=== PATIENT | male | born 1945 | race Two or more races ===

== ENCOUNTER 2019-09-04 16:12 | Inpatient (IN) | payer MEDICARE ==
[~2019-09-04] VITALS: Ht 170.2 cm; Wt 59.0 kg
--- NOTE | 2019-09-04 16:12 | NUR ---
To ER bed 3, COVID isolation observed for continuous coughing from [facility] [place], lethargic, minimally verbal, does not follow command, upper body clothes are dirty with urine-soaked pants. Comfort and safety measures maintained.
[2019-09-04] MEDS ORDERED: CEFTRIAXONE 1 G in IV DEXTROSE 5% 50 ML IV ONE (16:30)
[2019-09-04] MEDS ORDERED: AZITHROMYCIN IV 500 MG in IV DEXTROSE 5% 250 ML IV ONE (16:30)
[2019-09-04] MEDS ORDERED: AZITHROMYCIN 500MG/ D5W 250ML IVPB **ER PYXIS ONLY IV ONE (16:53)
[2019-09-04] MEDS ORDERED: CEFTRIAXONE /D5W 50ML IVPB **ER PYXIS IV ONE (16:53)
[2019-09-04] MEDS ORDERED: IV NORMAL SALINE 1000 ML BAG IV ONE (17:00)
[2019-09-04 17:31] LABS: ABG BASE EXCESS -0.4 mmol/L; ABG HCO3 21.7 mmol/L; ABG PCO2 29.2 mmHg (35.0-45.0); ABG PH 7.489 (7.350-7.450); ABG PO2 62.2 mmHg (75.0-100.0); ABG SITE RIGHT RADIAL; ABG TOTAL HEMOGLOBIN 14.9 G/dL (13.5-18.0); MetHb 0.2 % (0.0-1.5); O2Hb 92.4 % (94.0-97.0); VENT MODE non rebreather
[2019-09-04 17:38] LABS: BASOPHILS % (AUTO) 0.1 % (0.0-2.0); HEMOGLOBIN 14.7 g/dL (12.5-16.3); LYMPHOCYTES # (AUTO) 0.5 K/uL (20.0-40.0); LYMPHOCYTES % (AUTO) 4.4 % (20.5-51.5); MEAN CORPUSCULAR HEMOGLOBIN 31.1 uug (23.8-33.4); MEAN CORPUSCULAR HGB CONC 33 g/dL (32.5-36.3); MEAN CORPUSCULAR VOLUME 93.1 fL (73.0-96.2); MONOCYTES # (AUTO) 0.4 K/uL (2.0-10.0); NEUTROPHILS # (AUTO) 10.8 K/uL (1.8-8.9); NEUTROPHILS % (AUTO) 92.5 % (38.5-71.5); PLATELET COUNT (AUTO) 134 K/uL (152-348); RED BLOOD CELL COUNT(AUTO) 4.73 MIL/uL (4.06-5.63); WHITE BLOOD COUNT (AUTO) 11.6 K/uL (3.6-10.2)
[2019-09-04] MEDS ORDERED: ACET-73 PO (17:39)
[2019-09-04] MEDS ORDERED: ASPI-605 PO (17:39)
[2019-09-04 17:50] LABS: CARBON DIOXIDE 26 mmol/L (21-32); CHLORIDE 110 mmol/L (98-107); CREATININE 1.9 mg/dL (0.6-1.3); GLUCOSE 129 mg/dL (74-106); POTASSIUM 4.6 mmol/L (3.5-5.1); UREA NITROGEN, BLOOD 48 mg/dL (7-18)
[2019-09-04 18:02] LABS: ALANINE AMINOTRANSFERASE 15 U/L (16-63); ALKALINE PHOSPHATASE 64 U/L (50-136); ASPARTATE AMINOTRANSFERASE 36 U/L (15-37); TOTAL PROTEIN, SERUM 6.6 g/dL (6.4-8.2)
[2019-09-04 18:25] LABS: BAND % (MANUAL) 52 % (0-10); LYMPHOCYTES % (MANUAL) 6 % (20-40); METAMYELOCYTES % 1 % (0-1); MONOCYTES % (MANUAL) 4 % (2-10); NEUTROPHILS % (MANUAL) 37 % (42-75)
[2019-09-04] MEDS ORDERED: VANCOMYCIN IV 1,000 MG in IV DEXTROSE 5% 250 ML IV ONE (18:30)
[2019-09-04 18:49] LABS: *BILIRUBIN,URIN 2+ (NEGATIVE); *CLARITY,URINE CLOUDY (CLEAR); *COLOR,URINE AMBER (YELLOW); *KETONES,URINE NEGATIVE (NEGATIVE); LEUKOCYTE ESTERASE ,URINE NEGATIVE (NEGATIVE); NITRITE, URINE NEGATIVE (NEGATIVE); UGLUCOSE NEGATIVE (NEGATIVE)
[2019-09-04 18:52] LABS: *BLOOD, URINE TRACE (NEGATIVE)
[2019-09-04 18:54] LABS: COARSE GRANULAR CASTS,URINE 0-3 /LPF; MUCUS,URINE MODERATE /LPF (0-FEW); SQUAMOUS EPITHELIAL CELL,UR FEW /HPF (NONE SEEN); URINE AMORPHOUS URATE MANY /HPF; WBC,URINE 0-3 /HPF (0-3)
--- NOTE | 2019-09-04 19:05 | NUR ---
PATIENT OUT OF UNIT FOR CT SCAN.
--- NOTE | 2019-09-04 19:26 | NUR ---
PATIENT BACK FROM CT SCAN WITH NO DISTRESS NOTED.
[2019-09-04] MEDS ORDERED: VANCOMYCIN IV 200 ML ONE (19:36)
[2019-09-04] MEDS ORDERED: ENOXAPARIN SODIUM 60 MG/0.6 ML DISP.SYRIN SQ ONE ×2 (19:45→19:48)
[2019-09-04] MEDS ORDERED: Z GUARD REMEDY PASTE 57 GM TUBE TOP PRN (20:30)
[2019-09-04] MEDS ORDERED: HYDROCODONE/APAP 5-325MG TABLET PO PRN (20:30)
[2019-09-04] MEDS ORDERED: ONDANSETRON 4 MG/2 ML VIAL IV PRN (20:30)
[2019-09-04] MEDS ORDERED: ACETAMINOPHEN 325 MG TABLET PO PRN (20:30)
[2019-09-04 20:59] LABS: CREATINE KINASE, TOTAL 276 U/L (39-308); LACTATE DEHYDROGENASE 413 U/L (85-227)
[2019-09-04] MEDS ORDERED: HEPARIN SODIUM,PORCINE 5,000 UNITS/ML VIAL SQ SCH (21:00)
--- NOTE | 2019-09-04 21:18 | NUR ---
Transfered to 2nd floor ccu .
[2019-09-04 21:30] VITALS: BP 143/63
--- NOTE | 2019-09-04 21:30 | NUR ---
received from er , awake , unable to follow command , on 100% non rebreather , gannon intact , iv left and right hand 20 ga intact , no pressure sore just redness on the buttocks , temp 99.3 , rectally
[2019-09-04] MEDS ORDERED: ACETAMINOPHEN 650 MG SUPP.RECT RC PRN (22:00)
[2019-09-04] MEDS ORDERED: PIPERACILLIN/TAZOBACTAM/D5W 100 ML IV ONE (22:54)
[2019-09-04 23:00] VITALS: BP 140/62
[2019-09-04] MEDS: PIPERACILLIN SODIUM/TAZOBACTAM 3.375 G in IV DEXTROSE 5% 50 ML IV SCH (23:45)
[2019-09-05] VITALS (22 sets, daily range): BP systolic 95–143; BP diastolic 53–109
[2019-09-05 04:51] LABS: BASOPHILS % (AUTO) 0.1 % (0.0-2.0); HEMATOCRIT 43.1 % (36.7-47.1); HEMOGLOBIN 14.7 g/dL (12.5-16.3); LYMPHOCYTES # (AUTO) 0.4 K/uL (20.0-40.0); LYMPHOCYTES % (AUTO) 4.8 % (20.5-51.5); MEAN CORPUSCULAR HEMOGLOBIN 31.6 uug (23.8-33.4); MEAN CORPUSCULAR HGB CONC 34 g/dL (32.5-36.3); MEAN CORPUSCULAR VOLUME 92.3 fL (73.0-96.2); MONOCYTES # (AUTO) 0.1 K/uL (2.0-10.0); MONOCYTES % (AUTO) 1.7 % (0.0-11.0); NEUTROPHILS # (AUTO) 7.4 K/uL (1.8-8.9); NEUTROPHILS % (AUTO) 93.4 % (38.5-71.5); PLATELET COUNT (AUTO) 141 K/uL (152-348); RED BLOOD CELL COUNT(AUTO) 4.67 MIL/uL (4.06-5.63); WHITE BLOOD COUNT (AUTO) 7.9 K/uL (3.6-10.2)
[2019-09-05 05:01] LABS: ALANINE AMINOTRANSFERASE 16 U/L (16-63); ALKALINE PHOSPHATASE 58 U/L (50-136); ASPARTATE AMINOTRANSFERASE 32 U/L (15-37); BILIRUBIN,TOTAL 1.9 mg/dL (0.2-1.0); CARBON DIOXIDE 28 mmol/L (21-32); CHLORIDE 110 mmol/L (98-107); CHOLESTEROL 88 mg/dL (<200); CREATININE 1.6 mg/dL (0.6-1.3); GLUCOSE 132 mg/dL (74-106); HDL CHOLESTEROL 31 mg/dL (40-60); PHOSPHOROUS 2.5 mg/dL (2.5-4.9); POTASSIUM 4.4 mmol/L (3.5-5.1); TOTAL PROTEIN, SERUM 6.3 g/dL (6.4-8.2); TRIGLYCERIDES 58 MG/DL (30-150); UREA NITROGEN, BLOOD 45 mg/dL (7-18)
[2019-09-05] MEDS: PIPERACILLIN SODIUM/TAZOBACTAM 3.375 G in IV DEXTROSE 5% 50 ML IV SCH ×3 (05:01→21:21)
[2019-09-05 05:08] LABS: THYROID STIMULATING HORMONE 0.219 mIU/mL (0.358-3.740)
[2019-09-05] MEDS: ASPIRIN EC 81 MG TABLET.DR PO SCH (08:18)
--- NOTE | 2019-09-05 09:44 | NUR ---
BOILER SETTER Yadiel here to see pt. Full report given. No new orders received. Pt to remain in ICU for another day for observation.
--- NOTE | 2019-09-05 10:18 | NUR ---
PHARMACY CLINICAL NOTE (VANCOMYCIN DOSING) S: 73 YO male; with DX of Severe sepsis secondary to pneumonia, POA; initial lactic acid 4.9 Rule out COVID19 viral infection, ordered Vancomycin and Zosyn O: BUN/SCR (09/04/19)48/1.9; (09/05/19)45/1.6; WBC (09/04/19)11.6 (09/05/19) 7.9, TEMP 100.3, DOSING WT 130 LBS A/P:PT received one dose of Vancomycin 1000 mg @ 19:50 in ER (09/03); Will continue with vancomycin 1000 mg q28h. Second dose will be given tonight @ 0000.estimated peak 40 and trough 17. plan to order trough prior to 4th dose . Will continue to monitor renal fxn and levels and adjust the dose as it becomes necessary
[2019-09-05] MEDS: HEPARIN SODIUM,PORCINE 5,000 UNITS/ML VIAL SQ SCH ×2 (10:29→21:09)
--- NOTE | 2019-09-05 12:05 | NUR ---
Spoke with Brannon Gamez on the telephone. Full report given. New orders received.
--- NOTE | 2019-09-05 12:06 | NUR ---
Dr. Gamboa here to see pt. Full report given. No new orders received.
--- NOTE | 2019-09-05 18:00 | NUR ---
Telephone call made to Dr. Cordoba for IVF orders. Awaiting return call.
--- NOTE | 2019-09-05 19:15 | NUR ---
received patient awake , unable to follow command , portillo lefta dn right hand intact , gannon draining with tea colored urine , on 100 % nrb , no distress , fluids offered and refused
--- NOTE | 2019-09-05 20:57 | NUR ---
vitals signs being monitored and there's a stand by sophia rajan for sbp < 90 Addendum: 09/05/19 at 2056 by LEANDRA SAENZ RN Amended: Links added.
--- NOTE | 2019-09-05 20:59 | NUR ---
vitals signs being monitored and there's a stand by sophia rajan for sbp < 90 Addendum: 09/05/19 at 2058 by LEANDRA SAENZ RN Amended: Links added.
--- NOTE | 2019-09-05 21:00 | NUR ---
dr oneal, custodial manager was called and waiting for call back about patient's poor intake and possible need for iv fluids
--- NOTE | 2019-09-05 21:01 | NUR ---
lab levels being monitored and on antibiotics Addendum: 09/05/19 at 2101 by LEANDRA SAENZ RN Amended: Links added.
--- NOTE | 2019-09-05 22:00 | NUR ---
fluids and snacks gello and apple sauce offered and refused
[2019-09-06] VITALS (24 sets, daily range): BP systolic 94–155; BP diastolic 59–88
[2019-09-06] MEDS: VANCOMYCIN IV 1,000 MG in IV DEXTROSE 5% 250 ML IV SCH (00:09)
[2019-09-06] MEDS: MORPHINE SULFATE 2 MG/1 ML DISP.SYRIN IV PRN ×2 (00:13→17:15)
--- NOTE | 2019-09-06 03:00 | NUR ---
sleeping comfortably , arousable on 100 % non rebreather , no distress
[2019-09-06 05:28] LABS: BASOPHILS % (AUTO) 0.1 % (0.0-2.0); HEMATOCRIT 42.4 % (36.7-47.1); HEMOGLOBIN 14.5 g/dL (12.5-16.3); LYMPHOCYTES # (AUTO) 0.2 K/uL (20.0-40.0); LYMPHOCYTES % (AUTO) 2.8 % (20.5-51.5); MEAN CORPUSCULAR HEMOGLOBIN 31.5 uug (23.8-33.4); MEAN CORPUSCULAR HGB CONC 34 g/dL (32.5-36.3); MEAN CORPUSCULAR VOLUME 92.4 fL (73.0-96.2); MONOCYTES # (AUTO) 0.1 K/uL (2.0-10.0); MONOCYTES % (AUTO) 2.1 % (0.0-11.0); NEUTROPHILS # (AUTO) 6.2 K/uL (1.8-8.9); PLATELET COUNT (AUTO) 130 K/uL (152-348); RED BLOOD CELL COUNT(AUTO) 4.59 MIL/uL (4.06-5.63); WHITE BLOOD COUNT (AUTO) 6.5 K/uL (3.6-10.2)
[2019-09-06 05:34] LABS: CARBON DIOXIDE 31 mmol/L (21-32); CHLORIDE 111 mmol/L (98-107); CREATININE 1.5 mg/dL (0.6-1.3); GLUCOSE 130 mg/dL (74-106); POTASSIUM 3.5 mmol/L (3.5-5.1); UREA NITROGEN, BLOOD 45 mg/dL (7-18)
[2019-09-06] MEDS: PIPERACILLIN SODIUM/TAZOBACTAM 3.375 G in IV DEXTROSE 5% 50 ML IV SCH ×3 (05:44→22:37)
--- NOTE | 2019-09-06 06:00 | NUR ---
fluids and gello offered , refused to open mouth
--- NOTE | 2019-09-06 07:30 | NUR ---
RECIEVED PT LYING IN BED SO SOUND ASLEEP. BUT AROUSABLE TO NAME. NO APPARENT RESPIRATORY DISTRESS NOTED. HR - SINUS RHYTHM, WITH OCCASIONAL PAC. PT ON A 100% NRM. O2 SAT 99%. AFEBRILE.
--- NOTE | 2019-09-06 08:00 | NUR ---
IVF SITE IS INFILTRATED AND RESTARTED A NEW ONE IV G22..
--- NOTE | 2019-09-06 08:30 | NUR ---
PT HAD A 12 RUNS OF VTACH, VSS AND NO MAEVE[ARENT DISTRESS.
--- NOTE | 2019-09-06 08:52 | NUR ---
PHARMACY CLINICAL NOTE (VANCOMYCIN DOSING) S: 73 YO male; with DX of Severe sepsis secondary to pneumonia, r/o COVID O: BUN/SCR 45/1.5 ; WBC 6.5, TEMP 98.1 ht 170 cm wt 60 kg A/P: Will continue with vancomycin 1000 mg IVPB q28h. 3rd dose will be given tomorrow @ 0400. Plan to order trough prior to 4th dose . Will continue to monitor renal fxn and levels and adjust the dose as it becomes necessary. Will follow
[2019-09-06 08:56] LABS: ABG BASE EXCESS 3.3 mmol/L; ABG HCO3 26.6 mmol/L; ABG PH 7.486 (7.350-7.450); ABG PO2 325.9 mmHg (75.0-100.0); ABG SITE RIGHT RADIAL; MetHb 0.2 % (0.0-1.5); O2Hb 98.5 % (94.0-97.0)
--- NOTE | 2019-09-06 09:00 | NUR ---
RESTARTED A NEW IV G22 ON THE RFA, PREVIOUS IV SITE IS INFILTRATEDE AND REMOVED.
[2019-09-06] MEDS: ASPIRIN EC 81 MG TABLET.DR PO SCH (09:06)
[2019-09-06] MEDS: HEPARIN SODIUM,PORCINE 5,000 UNITS/ML VIAL SQ SCH ×2 (09:16→20:53)
--- NOTE | 2019-09-06 09:30 | NUR ---
NGT INSERTED ON THE RIGHT NOSTRIL FR#14 ORDERED AND PCXR ORDERED TO CHECK FOR PLACEMENT.
[2019-09-06] MEDS: IV NS 1000 ML 1,000 ML IV PRN (09:40)
--- NOTE | 2019-09-06 10:00 | NUR ---
SEEN AND EXAMINED BY DR MOROCHO WITH NEW ORDERS.
--- NOTE | 2019-09-06 11:50 | NUR ---
PT STARTED TO BE SO AGITATED, HR IS GOING SINUS TACHYCARDIA IN THE 120B/MIN, AND BREATHING FAST. ALBRETINA MEDICATION MORPHINE 1MG IN THE PYXIS TO MEDICATE HIM. BUT PT STARTED TO COME DOWN AND WENT BACK TO SLEEP. HR SLOWED DOWN. MORPHINE NOT GIVEN AND WASTED WITH ANOTHER RN.
--- NOTE | 2019-09-06 16:30 | NUR ---
O2SAT DROPPED DOWN TO 80%. SUCTION SECRETIONS LARGE AMOUNT AND PLACED PT BACK IN 100%NRM.
--- NOTE | 2019-09-06 19:20 | NUR ---
Received patient in bed asleep in semi-holm's position. Patient is currently on 15L O2 via NRB mask. O2 saturation 100%. Patient has an NGT in the right nare, placement confirmed earlier by CXR. NIKO midline and 22g in the right forearm. F/C present draining clear piyush urine.
[2019-09-06] MEDS: ACETAMINOPHEN 650 MG/20.3 ML LIQUID UDC NG PRN (21:03)
[2019-09-07] VITALS (24 sets, daily range): BP systolic 111–158; BP diastolic 54–111
[2019-09-07] MEDS: VANCOMYCIN IV 1,000 MG in IV DEXTROSE 5% 250 ML IV SCH (04:00)
[2019-09-07] MEDS: MORPHINE SULFATE 2 MG/1 ML DISP.SYRIN IV PRN ×3 (04:11→21:34)
[2019-09-07] MEDS: ACETAMINOPHEN 650 MG/20.3 ML LIQUID UDC NG PRN (04:11)
[2019-09-07 05:11] LABS: CREATININE 1.2 mg/dL (0.6-1.3); PHOSPHOROUS 2.5 mg/dL (2.5-4.9); POTASSIUM 3.2 mmol/L (3.5-5.1)
[2019-09-07 05:36] LABS: BASOPHILS % (AUTO) 0.1 % (0.0-2.0); EOSINOPHILS % (AUTO) 0.1 % (0.0-7.0); HEMATOCRIT 38.5 % (36.7-47.1); HEMOGLOBIN 13.2 g/dL (12.5-16.3); LYMPHOCYTES # (AUTO) 0.3 K/uL (20.0-40.0); LYMPHOCYTES % (AUTO) 6.9 % (20.5-51.5); MEAN CORPUSCULAR HEMOGLOBIN 31.8 uug (23.8-33.4); MEAN CORPUSCULAR HGB CONC 34 g/dL (32.5-36.3); MEAN CORPUSCULAR VOLUME 92.5 fL (73.0-96.2); MONOCYTES # (AUTO) 0.2 K/uL (2.0-10.0); MONOCYTES % (AUTO) 3.2 % (0.0-11.0); NEUTROPHILS # (AUTO) 4.4 K/uL (1.8-8.9); NEUTROPHILS % (AUTO) 89.7 % (38.5-71.5); PLATELET COUNT (AUTO) 111 K/uL (152-348); RED BLOOD CELL COUNT(AUTO) 4.16 MIL/uL (4.06-5.63); WHITE BLOOD COUNT (AUTO) 4.9 K/uL (3.6-10.2)
[2019-09-07] MEDS: PIPERACILLIN SODIUM/TAZOBACTAM 3.375 G in IV DEXTROSE 5% 50 ML IV SCH ×3 (06:11→22:26)
--- NOTE | 2019-09-07 06:30 | NUR ---
Received lab results and the patient's potassium was 3.2 down from 3.5 the previous day, and sodium continuing to increase at 152. Notified Kenrick Avelar MD of these labs and he ordered 40mEq Potassium via NGT. He did not wish to change the patient's IV fluids and he is to remain on 0.9%NS @50mL/hr.
[2019-09-07] MEDS ORDERED: POTASSIUM CHLORIDE 20 MEQ POWDER PACKET GT ONE (06:45)
[2019-09-07] MEDS: IV NS 1000 ML 1,000 ML IV PRN (06:56)
--- NOTE | 2019-09-07 07:25 | NUR ---
Received patient on restrains, restless agitated, unable to follow commands. Safety measures implemented, pt. unable to meet restrain release criteria. Wilde to gravity, sbp within desired limits.
[2019-09-07] MEDS: ASPIRIN 81 MG TAB.CHEW NG SCH (08:00)
[2019-09-07] MEDS: HEPARIN SODIUM,PORCINE 5,000 UNITS/ML VIAL SQ SCH ×2 (08:01→20:14)
[2019-09-07] MEDS ORDERED: IV 1/2NS 1000 ML 1,000 ML IV PRN (08:01)
[2019-09-07] MEDS: METHIMAZOLE 5 MG TABLET NG SCH (08:02)
[2019-09-07 08:09] LABS: ABG BASE EXCESS 1.4 mmol/L; ABG HCO3 25.8 mmol/L; ABG PCO2 40.1 mmHg (35.0-45.0); ABG PH 7.426 (7.350-7.450); ABG PO2 174.9 mmHg (75.0-100.0); ABG SITE RIGHT RADIAL; ABG TOTAL HEMOGLOBIN 14.8 G/dL (13.5-18.0); MetHb 0.3 % (0.0-1.5); O2Hb 98.3 % (94.0-97.0)
--- NOTE | 2019-09-07 09:00 | NUR ---
Attending Kelvin Cedillo in the unit to see and examine patient, report given he was also informed of low urine output,. orders to continue with care plan received.
--- NOTE | 2019-09-07 09:30 | NUR ---
Patient severely restless and agitated, swinging his legs outside the side-rails. Patient unable to follow commands. For safety measures 1st-step mattress removed. and mittens applied patient been able to remove [id number]. Vitals of: HR of 106, 157/73 saturation of 94% on 100% N-R.
--- NOTE | 2019-09-07 09:44 | NUR ---
Pulmonary services, Dr. Arroyo in the unit to see and examine patient, full report given. see order hx.
--- NOTE | 2019-09-07 10:52 | NUR ---
PHARMACY CLINICAL NOTE (VANCOMYCIN DOSING) S: 73 YO male; with DX of Severe sepsis secondary to pneumonia, r/o COVID O: BUN/SCR 44/1.2 ; WBC 4.9, TEMP 98.6 ht 170 cm wt 60 kg Trough pending 09/07 @ 0730 A/P: Will continue with vancomycin 1000 mg IVPB q28h. Though renal fxn has improved, tomorrow 0800 is 4th dose. Will check trough tomorrow at 0730 and adjust as needed. Will follow
[2019-09-07] MEDS: IV 1/2NS 1000 ML 1,000 ML IV PRN (13:07)
--- NOTE | 2019-09-07 18:50 | NUR ---
Left patient on restrains, restless agitated, unable to follow commands. Safety measures implemented, no injury sustained pt. unable to meet restrain release criteria. Wilde to gravity patent, sbp within desired limits. NG clamped. No new skin breakdown. ML to NIKO patent and infusing as ordered. will endorse to incoming shift.
--- NOTE | 2019-09-07 19:15 | NUR ---
Received patient in bed asleep in semi-holm's position. Patient is currently on 15L O2 via NRB mask. O2 saturation 100%. Patient has an NGT in the right nare, placement confirmed earlier by CXR. NIKO midline and 22g in the right forearm. F/C present draining clear piyush urine. Patient has on soft wrist restraints and mittens due to his frequent agitation and attempts to remove lines and catheters.
[2019-09-08] VITALS (22 sets, daily range): BP systolic 80–159; BP diastolic 44–100
[2019-09-08] MEDS: MORPHINE SULFATE 2 MG/1 ML DISP.SYRIN IV PRN ×3 (01:40→15:52)
[2019-09-08] MEDS: IV 1/2NS 1000 ML 1,000 ML IV PRN (03:20)
[2019-09-08] MEDS: ACETAMINOPHEN 650 MG/20.3 ML LIQUID UDC NG PRN (04:48)
[2019-09-08 05:25] LABS: BASOPHILS % (AUTO) 0.1 % (0.0-2.0); EOSINOPHILS % (AUTO) 0.4 % (0.0-7.0); HEMATOCRIT 41.4 % (36.7-47.1); HEMOGLOBIN 14.1 g/dL (12.5-16.3); LYMPHOCYTES # (AUTO) 0.3 K/uL (20.0-40.0); LYMPHOCYTES % (AUTO) 6.9 % (20.5-51.5); MEAN CORPUSCULAR HEMOGLOBIN 31.5 uug (23.8-33.4); MEAN CORPUSCULAR HGB CONC 34 g/dL (32.5-36.3); MEAN CORPUSCULAR VOLUME 92.9 fL (73.0-96.2); MONOCYTES # (AUTO) 0.1 K/uL (2.0-10.0); MONOCYTES % (AUTO) 3.2 % (0.0-11.0); NEUTROPHILS % (AUTO) 89.4 % (38.5-71.5); PLATELET COUNT (AUTO) 103 K/uL (152-348); RED BLOOD CELL COUNT(AUTO) 4.46 MIL/uL (4.06-5.63); WHITE BLOOD COUNT (AUTO) 4.5 K/uL (3.6-10.2)
[2019-09-08 05:40] LABS: CREATININE 1.1 mg/dL (0.6-1.3); MAGNESIUM 2.1 mg/dL (1.8-2.4); POTASSIUM 3.3 mmol/L (3.5-5.1)
[2019-09-08] MEDS: PIPERACILLIN SODIUM/TAZOBACTAM 3.375 G in IV DEXTROSE 5% 50 ML IV SCH ×3 (06:00→22:00)
[2019-09-08 06:10] LABS: ABG BASE EXCESS -1.3 mmol/L; ABG HCO3 22.3 mmol/L; ABG PCO2 34.8 mmHg (35.0-45.0); ABG PH 7.424 (7.350-7.450); ABG PO2 157.2 mmHg (75.0-100.0); ABG SITE RIGHT RADIAL; ABG TOTAL HEMOGLOBIN 17.5 G/dL (13.5-18.0); COHb 0.7 % (0.5-1.5); MetHb 0.5 % (0.0-1.5); O2Hb 98.4 % (94.0-97.0)
--- NOTE | 2019-09-08 07:30 | NUR ---
Received patient in bed severely restless and agitated, AAOx1. confused. BUE soft wrist, and Mittens in place. Patient educated on restrain release criteria and at this time unable to meet standards. Iv line to RUE patent.
[2019-09-08] MEDS: POTASSIUM CHLORIDE 50 ML IV SCH ×4 (07:39→09:27)
[2019-09-08] MEDS: ASPIRIN 81 MG TAB.CHEW NG SCH (08:02)
[2019-09-08] MEDS: HEPARIN SODIUM,PORCINE 5,000 UNITS/ML VIAL SQ SCH ×2 (08:04→20:32)
[2019-09-08] MEDS: METHIMAZOLE 5 MG TABLET NG SCH (08:05)
[2019-09-08] MEDS: HYDROCODONE/APAP 5-325MG TABLET NG PRN ×2 (08:13→16:56)
--- NOTE | 2019-09-08 08:34 | NUR ---
PHARMACY CLINICAL NOTE (VANCOMYCIN DOSING) S: 73 YO male; with DX of Severe sepsis secondary to pneumonia, r/o COVID O: BUN/SCR 31/1.1 ; WBC 4.5, TEMP 99.6 ht 170 cm wt 60 kg Trough on 09/07 @ 0730: 11.9 A/P: Since vanco trough level is 11.9 mcg/ml, will change dose to Vancomycin 1000 mg IVPB q22h for predicted vanco trough level of 16 mcg/ml at steady state. 1st talbot today at 0900. Plan to check trough before 4th dose of current regimen (not yet ordered). Will monitor renal function & adjust the dose if needed. Will follow
[2019-09-08] MEDS ORDERED: VANCOMYCIN IV 1,000 MG in IV DEXTROSE 5% 250 ML IV SCH (09:00)
[2019-09-08 09:05] LABS: BAND % (MANUAL) 3 % (0-10); LYMPHOCYTES % (MANUAL) 8 % (20-40); MONOCYTES % (MANUAL) 2 % (2-10); MYELOCYTES % 2 % (0-0); NEUTROPHILS % (MANUAL) 85 % (42-75)
[2019-09-08] MEDS ORDERED: Z GUARD REMEDY PASTE 57 GM TUBE TOP PRN (09:45)
--- NOTE | 2019-09-08 10:03 | NUR ---
Pulmonary services, Dr. Arroyo in the unit to see and examine patient, full report given see order hx.
[2019-09-08] MEDS ORDERED: JEVITY 1.2 1000 ML LIQUID GT PRN (10:30)
[2019-09-08] MEDS ORDERED: JEVITY 1.2 1000 ML LIQUID NG PRN (10:33)
--- NOTE | 2019-09-08 11:34 | NUR ---
Nephrology serviced, Dr. Giorgi Louis in the unit to see patient, report given. See order hx.
--- NOTE | 2019-09-08 12:05 | NUR ---
Patient with a period of desaturation in the mid-80's. Attending Muna Whittington in the unit report given and he was notified that TF was started. Orders to maintain tube feeding at 20ml/hrs received.
[2019-09-08] MEDS: POTASSIUM CHLORIDE 20 MEQ in IV 1/2NS 1000 ML 1,000 ML IV PRN (12:14)
--- NOTE | 2019-09-08 12:15 | NUR ---
Wayneid-19 Positive results reported at this time, attending Muna Arce in the unit and aware, a call to AUSTIN Arce and care plan discusses on the phone with both patient's. Addendum: 09/08/19 at 1348 by REAGAN LEMONS RN care plan discusses on the phone by both attending and Id consult Muna
[2019-09-08 13:23] LABS: BILIRUBIN,DIRECT 0.2 mg/dL (0.0-0.2); BILIRUBIN,TOTAL 0.8 mg/dL (0.2-1.0)
[2019-09-08] MEDS ORDERED: INVESTIGATIONAL IV MED 1 EA in IV NORMAL SALINE 210 ML IV ONE (15:00)
[2019-09-08] MEDS ORDERED: NEUTRA PHOS PACKET NG ONE (15:30)
--- NOTE | 2019-09-08 16:30 | NUR ---
Psychiatrist Dr. Scanlon to assess patient, via zoom conference, report given see order hx.
[2019-09-08] MEDS: QUETIAPINE FUMARATE 25 MG TABLET PO SCH (16:49)
[2019-09-08] MEDS: DIVALPROEX SPRINKLE 125 MG CAP.SPRINK PO SCH ×2 (16:49→20:32)
[2019-09-08] MEDS: JEVITY 1.2 1000 ML LIQUID NG PRN (16:54)
--- NOTE | 2019-09-08 18:40 | NUR ---
Patient left in bed resting. Remains on Non-rebreather 100% with periods of desaturation pt. suctioned prn. vitals stable throughout the shift. Medicated for comfort ATC. gannon to gravity with adequate urine output. Ng to feeding at 20ml/hr. pt. tolerating well with no residuals no n/v. Remains on restrains due restlessness and agitation. Care plan endorse to incoming shift.
--- NOTE | 2019-09-08 18:40 | NUR ---
Patient seen by AUSTIN Arce see order hx.
--- NOTE | 2019-09-08 19:15 | NUR ---
received patient lethargic , arousable to touch and name , , unable to follow command , on 100 % nrb , midline intact running 1/2 ns + 20 meq kcl at 75 ml/hr , temp 99.0 f , ngt with jevity 1.2 running , at 20 ml hr , intact aspirated and auscultated for placement , no residual , incontinent of bowel , gannon intact
[2019-09-08] MEDS ORDERED: TOCILIZUMAB 400 MG in IV NORMAL SALINE 80 ML IV ONE ×2 (20:00→21:00)
[2019-09-08] MEDS ORDERED: diphenhydrAMINE 50 MG/1 ML VIAL IV ONE (21:00)
[2019-09-08] MEDS ORDERED: ACETAMINOPHEN 650 MG/20.3 ML LIQUID UDC NG ONE (21:00)
[2019-09-08] MEDS ORDERED: methylPREDNISolone SOD SUCC 40 MG/ML VIAL IV ONE (21:00)
--- NOTE | 2019-09-08 22:08 | NUR ---
psychiatrist has been consulted , patient was placed on seroquel and depakote, will tolerate medications Addendum: 09/08/19 at 2208 by LEANDRA SAENZ RN Amended: Links added. Addendum: 09/08/19 at 2212 by LEANDRA SAENZ RN Amended: Links added.
--- NOTE | 2019-09-08 22:12 | NUR ---
lab levels are being monitored , and being corrected , currently on 04/09 ns + 20 meq kcl at 75 ml , intake and output being monitored Addendum: 09/08/19 at 2212 by LEANDRA SAENZ RN Amended: Links added.
--- NOTE | 2019-09-08 22:13 | NUR ---
patient is placed on different medciations and antiviral drugs for covid 19 Addendum: 09/08/19 at 2214 by LEANDRA SAENZ RN Amended: Links added.
--- NOTE | 2019-09-08 22:14 | NUR ---
patient will tolerate current oxygen on 100 % non rebreather , and suction when necessary Addendum: 09/08/19 at 2215 by LEANDRA SAENZ RN Amended: Links added. Addendum: 09/08/19 at 2217 by LEANDRA SAENZ RN Amended: Links added.
--- NOTE | 2019-09-08 22:17 | NUR ---
patient lab levels and cxr will improve prior to discharge and less secretions , patient will be more awake and able to follow command prior to discharge Addendum: 09/08/19 at 2217 by LEANDRA SAENZ RN Amended: Links added.
[2019-09-09] VITALS (64 sets, daily range): BP systolic 70–154; BP diastolic 44–101
--- NOTE | 2019-09-09 | NUR ---
sleeping comfortably , no fever , flexi seal inserted for liquid bowel , jevity 1.2 running at 20 ml , no residual , 250 flushes given via ngt , iv 1/2 ns + 20 kcl running at 75 ml ,
[2019-09-09] MEDS: NOREPINEPHRINE BITARTRATE 8 MG in IV NORMAL SALINE 242 ML IV PRN ×2 (00:29→08:28)
--- NOTE | 2019-09-09 00:45 | NUR ---
levophed was started at 0.1 mcg to keep sbp > 90
[2019-09-09] MEDS: POTASSIUM CHLORIDE 20 MEQ in IV 1/2NS 1000 ML 1,000 ML IV PRN ×2 (00:49→15:33)
[2019-09-09] MEDS: PIPERACILLIN SODIUM/TAZOBACTAM 3.375 G in IV DEXTROSE 5% 50 ML IV SCH ×3 (06:08→21:33)
[2019-09-09 06:27] LABS: BILIRUBIN,DIRECT 0.2 mg/dL (0.0-0.2); BILIRUBIN,TOTAL 0.6 mg/dL (0.2-1.0); CREATININE 1.2 mg/dL (0.6-1.3); MAGNESIUM 1.8 mg/dL (1.8-2.4); POTASSIUM 4.7 mmol/L (3.5-5.1); TOTAL PROTEIN, SERUM 5.5 g/dL (6.4-8.2)
--- NOTE | 2019-09-09 06:51 | NUR ---
awake ,restless , iv running levophed at 0/2 mcg , 1/2 ns + 20 meq kcl at 75 ml . ngt intact with jevity at 20 ml , no residual , flexiseal and gannon intact , mid line sam sluggish when flush
--- NOTE | 2019-09-09 07:00 | NUR ---
JOSE TABLE RUNNER IN THE UNIT THIS MORNING. UPDATED PER VICE PRESIDENT CLIENT SERVICES NURSE AND INFORMED OF LOW URINARY OUTPUT. ORDERED 500ML BOLUS TO BE GIVEN.
[2019-09-09] MEDS ORDERED: IV NORMAL SALINE 500 ML BAG IV ONE (07:15)
[2019-09-09] MEDS ORDERED: DEXTROSE 50% 50 ML DISP.SYRIN IV PRN (07:30)
[2019-09-09] MEDS ORDERED: IV NORMAL SALINE 500 ML IV ONE (08:00)
--- NOTE | 2019-09-09 08:00 | NUR ---
DOCTOR VERNELL IN THE UNIT TO SEE PATIENT. NO NEW ORDERS FOR NOW.
[2019-09-09] MEDS: ASPIRIN 81 MG TAB.CHEW NG SCH (08:10)
[2019-09-09] MEDS: DIVALPROEX SPRINKLE 125 MG CAP.SPRINK PO SCH ×2 (08:10→21:33)
[2019-09-09] MEDS: QUETIAPINE FUMARATE 25 MG TABLET PO SCH ×3 (08:11→17:50)
[2019-09-09] MEDS: METHIMAZOLE 5 MG TABLET NG SCH (08:13)
[2019-09-09] MEDS: HEPARIN SODIUM,PORCINE 5,000 UNITS/ML VIAL SQ SCH ×2 (08:14→21:32)
--- NOTE | 2019-09-09 08:30 | NUR ---
DOCTOR TOVAR IN THE UNIT TO SEE PATIENT AND DOCTOR TAMAYO. DOCTOR TAMAYO INFORMED THAT PATIENT HAD LOW URINARY OUTPUT LAST NIGHT OF ONLY 100ML FOR ENTIRE SHIFT AND JOSE GIVEN 500ML BOLUS EARLIER THIS MORNING. DOCTOR TOVAR INFORMED 100% NRB IS ADEQUATE AT THIS TIME AND POSSIBLE TITRATION DOWN. SUCTIONING THICK BLOOD SECRETIONS PER RT.SPUTUM SPECIMEN OBTAINED AND SENT
[2019-09-09 08:57] LABS: BASOPHILS % (AUTO) 0.1 % (0.0-2.0); HEMATOCRIT 40.5 % (36.7-47.1); HEMOGLOBIN 13.7 g/dL (12.5-16.3); LYMPHOCYTES # (AUTO) 0.2 K/uL (20.0-40.0); MEAN CORPUSCULAR HEMOGLOBIN 31.3 uug (23.8-33.4); MEAN CORPUSCULAR HGB CONC 34 g/dL (32.5-36.3); MEAN CORPUSCULAR VOLUME 92.5 fL (73.0-96.2); MONOCYTES # (AUTO) 0.1 K/uL (2.0-10.0); MONOCYTES % (AUTO) 2.2 % (0.0-11.0); NEUTROPHILS # (AUTO) 6.2 K/uL (1.8-8.9); NEUTROPHILS % (AUTO) 94.7 % (38.5-71.5); PLATELET COUNT (AUTO) 138 K/uL (152-348); RED BLOOD CELL COUNT(AUTO) 4.38 MIL/uL (4.06-5.63); WHITE BLOOD COUNT (AUTO) 6.5 K/uL (3.6-10.2)
[2019-09-09] MEDS: methylPREDNISolone SOD SUCC 40 MG/ML VIAL IV SCH ×2 (12:06→21:17)
[2019-09-09] MEDS: BLOOD SUGAR DIAGNOSTIC 1 EACH STRIP VI SCH ×2 (12:25→18:27)
[2019-09-09] MEDS: INSULIN REGULAR, HUMAN 300 UNIT/3 ML VIAL SQ PRN ×2 (12:28→18:54)
[2019-09-09] MEDS: ACETAMINOPHEN 650 MG/20.3 ML LIQUID UDC NG PRN (13:18)
[2019-09-09] MEDS: INVESTIGATIONAL IV MED 1 EA in IV NORMAL SALINE 230 ML IV SCH (15:12)
--- NOTE | 2019-09-09 19:00 | NUR ---
SONNY DITCHING MACHINE OPERATING ENGINEER FOR ID IN THE UNIT TO SEE PATIENT INFORMED OF SLIGHT FEVER OF 100.8 AND TYLENOL WAS GIVEN NO FURTHER ELEVATED TEMPERATURE NOTED. NO ORDERS RECEIVED. AND ALSO INFORMED THE CRITICAL HIGH OF PROCALCITONIN REPORTED
--- NOTE | 2019-09-09 19:30 | NUR ---
received patient awake , unable to follow command, , very restless, , iv running picc line 1/2 + 20 meq kcl 75 ml hr , levophed 0.04 mcg , flexi and gannon , intact , mid line sam sluggish
[2019-09-09] MEDS: MORPHINE SULFATE 2 MG/1 ML DISP.SYRIN IV PRN ×2 (20:30→21:28)
[2019-09-09 21:07] LABS: ABG BASE EXCESS -5.2 mmol/L; ABG HCO3 17.8 mmol/L; ABG PCO2 28.5 mmHg (35.0-45.0); ABG PH 7.413 (7.350-7.450); ABG PO2 84.3 mmHg (75.0-100.0); ABG SITE LEFT RADIAL
--- NOTE | 2019-09-09 21:30 | NUR ---
dr hernandez was called and notified and abg results , no orders received
--- NOTE | 2019-09-09 22:25 | NUR ---
will tolerate morphine , with no respiratory distress. Addendum: 09/09/19 at 2225 by ELANDRA SAENZ RN Amended: Links added.
--- NOTE | 2019-09-09 22:37 | NUR ---
lab levels being monitored and currently on diffeent antibiotics and antiviarl drugs for covid 19 Addendum: 09/09/19 at 2238 by LEANDRA SAENZ RN Amended: Links added.
--- NOTE | 2019-09-09 22:37 | NUR ---
lab levels being monitored daily , and being replacep when necessary , currently on 04/09 ns + 20 meq kcl 75 ml Addendum: 09/09/19 at 2237 by LEANDRA SAENZ RN Amended: Links added.
--- NOTE | 2019-09-09 22:40 | NUR ---
aloc and breathing being monitored currently was switched back to 100 % nrb and sas programmer remote notified Addendum: 09/09/19 at 2240 by LEANDRA SAENZ RN Amended: Links added.
[2019-09-10] VITALS (24 sets, daily range): BP systolic 118–180; BP diastolic 59–154
[2019-09-10] MEDS: BLOOD SUGAR DIAGNOSTIC 1 EACH STRIP VI SCH ×4 (00:07→16:46)
[2019-09-10] MEDS: INSULIN REGULAR, HUMAN 300 UNIT/3 ML VIAL SQ PRN ×3 (00:13→16:49)
[2019-09-10] MEDS: MORPHINE SULFATE 2 MG/1 ML DISP.SYRIN IV PRN ×4 (03:42→21:23)
[2019-09-10 05:26] LABS: BASOPHILS % (AUTO) 0.1 % (0.0-2.0); HEMATOCRIT 40.2 % (36.7-47.1); HEMOGLOBIN 13.7 g/dL (12.5-16.3); LYMPHOCYTES # (AUTO) 0.4 K/uL (20.0-40.0); LYMPHOCYTES % (AUTO) 4.1 % (20.5-51.5); MEAN CORPUSCULAR HEMOGLOBIN 31.2 uug (23.8-33.4); MEAN CORPUSCULAR HGB CONC 34 g/dL (32.5-36.3); MEAN CORPUSCULAR VOLUME 91.6 fL (73.0-96.2); MONOCYTES # (AUTO) 0.3 K/uL (2.0-10.0); NEUTROPHILS # (AUTO) 9.3 K/uL (1.8-8.9); NEUTROPHILS % (AUTO) 92.8 % (38.5-71.5); PLATELET COUNT (AUTO) 118 K/uL (152-348); RED BLOOD CELL COUNT(AUTO) 4.39 MIL/uL (4.06-5.63)
[2019-09-10] MEDS: PIPERACILLIN SODIUM/TAZOBACTAM 3.375 G in IV DEXTROSE 5% 50 ML IV SCH ×3 (05:29→22:04)
--- NOTE | 2019-09-10 05:30 | NUR ---
PATIENT WAS VERY RESTLESS , PULLED THE NGT WHILE BEING TURNED AND CLEANED , MORPHINE WAS GIVEN PRIOR , BUT PATIENT STILL RESTLSS WHEN MOVED TO TURN POSITION AND SOB DURING ACTIVITIES
[2019-09-10 05:43] LABS: MAGNESIUM 1.8 mg/dL (1.8-2.4); PHOSPHOROUS 2.1 mg/dL (2.5-4.9)
[2019-09-10 05:45] LABS: BILIRUBIN,DIRECT 0.2 mg/dL (0.0-0.2); BILIRUBIN,TOTAL 0.4 mg/dL (0.2-1.0); CREATININE 0.8 mg/dL (0.6-1.3); POTASSIUM 4.1 mmol/L (3.5-5.1); TOTAL PROTEIN, SERUM 5.2 g/dL (6.4-8.2)
[2019-09-10] MEDS: POTASSIUM CHLORIDE 20 MEQ in IV 1/2NS 1000 ML 1,000 ML IV PRN ×2 (05:52→20:16)
--- NOTE | 2019-09-10 06:00 | NUR ---
NGT INSERTED AT THE LEFT NARE , , AUSCULTATED AND ASPIRATED FOR PLACEMENT WAITING FOR CXR FOR VERIFICATION BEFORE STARTING THE FEEDING
--- NOTE | 2019-09-10 06:36 | NUR ---
CALMER , OXYGEN SATURATION 95% AT 100 % NON REBREATHER , HEART RATE AT 101 , RESPIRATORY STILL TACHYPNEIC AT 35 , SBP 118 /59
--- NOTE | 2019-09-10 07:00 | NUR ---
RECEIVING PATIENT AGITATED AND RESTLESS DESATURATING TO 80'S WITH NONREBREATHER AND TACHYCARDIAC IN THE 130'S. JOSE AT BEDSIDE ORDERED ABG AND INFORMED PULMO FOR POSSIBLE INTUBATION.
--- NOTE | 2019-09-10 08:00 | NUR ---
DEEP MOUTH SUCTIONING ORAL CARE AND NASOPHYRANGEAL SUCTIONING DONE PER RT THIS AM WHILE PATIENT CONTINUES TO BE RESTLESS AGITATED AND ABG OBTAINED. PATIENT GRADUALLY BECAME CALM AND SATURATING ABOVE 95% ONCE SUCTIONING DONE.
[2019-09-10] MEDS: DIVALPROEX SPRINKLE 125 MG CAP.SPRINK PO SCH ×2 (08:05→20:26)
[2019-09-10] MEDS: QUETIAPINE FUMARATE 25 MG TABLET PO SCH ×3 (08:05→16:46)
[2019-09-10] MEDS: METHIMAZOLE 5 MG TABLET NG SCH (08:05)
[2019-09-10] MEDS: methylPREDNISolone SOD SUCC 40 MG/ML VIAL IV SCH ×2 (08:05→20:26)
[2019-09-10] MEDS: ASPIRIN 81 MG TAB.CHEW NG SCH (08:05)
[2019-09-10] MEDS: HEPARIN SODIUM,PORCINE 5,000 UNITS/ML VIAL SQ SCH ×2 (08:06→20:27)
--- NOTE | 2019-09-10 08:30 | NUR ---
DOCTOR VERNELL IN THE UNIT. ORDERED IF PATIENT SUSTAINS IN AFIB MAY START AMIODARONE DRIP WITH BOLUS PER PROTOCOL.
--- NOTE | 2019-09-10 12:50 | NUR ---
Jina manuel called to change code status in which she stated that she spoke to the rest of her family and they have decided for no intubation if required. second nurse Modesto PARNELL confirmed the change in code status with Jina Manuel and notified primary physician and will change status in system.
[2019-09-10] MEDS ORDERED: SODIUM PHOSPHATE MM 7.5 MMOL in IV NORMAL SALINE 100 ML IV ONE (14:45)
[2019-09-10] MEDS: INVESTIGATIONAL IV MED 1 EA in IV NORMAL SALINE 230 ML IV SCH (14:46)
--- NOTE | 2019-09-10 19:20 | NUR ---
Received patient in bed resting in semi-holm's position. Patient is currently on 15L O2 via NRB mask. O2 saturation 100%. Patient has an NGT in the left nare, placement confirmed earlier by CXR. NIKO midline and 22g in the right forearm. DERICK PICC line 3-lumen. F/C present draining clear piyush urine. Flexi-seal present draining brown liquid. Patient has on restraint mittens due to his frequent agitation and attempts to remove lines and catheters.
[2019-09-10] MEDS: HYDROCODONE/APAP 5-325MG TABLET NG PRN (20:26)
--- NOTE | 2019-09-10 21:33 | NUR ---
Patient has become extremely agitated. Audible secretions noted on respirations. RT came and deep suctioned the patient, extracting copious secretions. patient remained highly agitated after suctioning, so 1mg morphine given to help ease any discomfort the patient may be experiencing. As of this note, the patient is noticeably calmer and beginning to relax. oxygen saturation and heart rate beginning to return to normal.
[2019-09-10 23:22] LABS: ABG BASE EXCESS -4.6 mmol/L; ABG HCO3 17.8 mmol/L; ABG PCO2 26.7 mmHg (35.0-45.0); ABG PH 7.442 (7.350-7.450); ABG SITE LEFT RADIAL; ABG TOTAL HEMOGLOBIN 14.5 G/dL (13.5-18.0); MetHb 0.3 % (0.0-1.5); O2Hb 88.7 % (94.0-97.0)
[2019-09-11] VITALS (23 sets, daily range): BP systolic 59–174; BP diastolic 33–91
[2019-09-11] MEDS: BLOOD SUGAR DIAGNOSTIC 1 EACH STRIP VI SCH ×5 (00:33→23:28)
[2019-09-11] MEDS: INSULIN REGULAR, HUMAN 300 UNIT/3 ML VIAL SQ PRN ×5 (00:37→23:33)
[2019-09-11] MEDS: MORPHINE SULFATE 2 MG/1 ML DISP.SYRIN IV PRN ×3 (01:59→18:00)
[2019-09-11 05:50] LABS: MAGNESIUM 1.7 mg/dL (1.8-2.4); PHOSPHOROUS 2.5 mg/dL (2.5-4.9)
[2019-09-11] MEDS: PIPERACILLIN SODIUM/TAZOBACTAM 3.375 G in IV DEXTROSE 5% 50 ML IV SCH ×3 (05:51→22:36)
[2019-09-11 05:55] LABS: BASOPHILS % (AUTO) 0.1 % (0.0-2.0); HEMATOCRIT 39.4 % (36.7-47.1); HEMOGLOBIN 13.3 g/dL (12.5-16.3); LYMPHOCYTES # (AUTO) 0.6 K/uL (20.0-40.0); LYMPHOCYTES % (AUTO) 3.5 % (20.5-51.5); MEAN CORPUSCULAR HEMOGLOBIN 31.1 uug (23.8-33.4); MEAN CORPUSCULAR HGB CONC 34 g/dL (32.5-36.3); MONOCYTES # (AUTO) 0.7 K/uL (2.0-10.0); MONOCYTES % (AUTO) 4.2 % (0.0-11.0); NEUTROPHILS # (AUTO) 14.8 K/uL (1.8-8.9); NEUTROPHILS % (AUTO) 92.2 % (38.5-71.5); PLATELET COUNT (AUTO) 175 K/uL (152-348); RED BLOOD CELL COUNT(AUTO) 4.29 MIL/uL (4.06-5.63)
[2019-09-11 06:44] LABS: BILIRUBIN,DIRECT 0.1 mg/dL (0.0-0.2); BILIRUBIN,TOTAL 0.6 mg/dL (0.2-1.0); POTASSIUM 4.6 mmol/L (3.5-5.1); TOTAL PROTEIN, SERUM 5.1 g/dL (6.4-8.2)
--- NOTE | 2019-09-11 07:30 | NUR ---
Received report from shift leader nurse, patient in bed thrashing very restless, unable to get continuous pulse ox readings. Patients BP is WNL, Patient repositioned, put on sheets, and patient was able to become mildly less restless. Wilde draining dark sedimented urine, patient has flexiseal, and is on 15L nonrebreather mask. Restraints maintained as patient is pulling lines. Bed in low position, side rails upx2. Bed alarm set.
[2019-09-11 08:10] LABS: ABG BASE EXCESS -5.6 mmol/L; ABG PCO2 22.4 mmHg (35.0-45.0); ABG PH 7.473 (7.350-7.450); ABG PO2 41.8 mmHg (75.0-100.0); ABG SITE RIGHT RADIAL; ABG TOTAL HEMOGLOBIN 13.1 G/dL (13.5-18.0); COHb 0.9 % (0.5-1.5); MetHb 0.5 % (0.0-1.5)
[2019-09-11] MEDS: DIVALPROEX SPRINKLE 125 MG CAP.SPRINK PO SCH ×2 (09:05→21:14)
[2019-09-11] MEDS: HEPARIN SODIUM,PORCINE 5,000 UNITS/ML VIAL SQ SCH ×2 (09:06→21:15)
[2019-09-11] MEDS: ASPIRIN 81 MG TAB.CHEW NG SCH (09:06)
[2019-09-11] MEDS: QUETIAPINE FUMARATE 25 MG TABLET PO SCH ×3 (09:06→16:49)
[2019-09-11] MEDS: methylPREDNISolone SOD SUCC 40 MG/ML VIAL IV SCH ×2 (09:06→21:14)
[2019-09-11] MEDS: METHIMAZOLE 5 MG TABLET NG SCH (09:07)
[2019-09-11] MEDS: JEVITY 1.2 1000 ML LIQUID NG PRN (09:15)
[2019-09-11] MEDS ORDERED: MAGNESIUM SULFATE/D5W 100 ML IV SCH (09:30)
[2019-09-11] MEDS: HYDROCODONE/APAP 5-325MG TABLET NG PRN (09:42)
[2019-09-11] MEDS: LORAZEPAM 2 MG/1 ML VIAL IV PRN ×3 (10:21→21:27)
[2019-09-11] MEDS: POTASSIUM CHLORIDE 20 MEQ in IV 1/2NS 1000 ML 1,000 ML IV PRN (13:26)
[2019-09-11] MEDS: INVESTIGATIONAL IV MED 1 EA in IV NORMAL SALINE 230 ML IV SCH (15:13)
--- NOTE | 2019-09-11 18:00 | NUR ---
Patient repositioned and cleaned up, noted to be coughing and RT suctioned copious amounts of thick brown mucus and clots. Patient desaturating oxygen levels to 70%. 3L nasal cannula added to existing oxygen. Slowly increasing oxygen saturation noted.
--- NOTE | 2019-09-11 18:53 | NUR ---
patient currently in bed, no distress noted at this time, bed in low position, side rails upx2. Wilde draining, NON-Rebreather mask and 3L nasal cannula on. Patient is hemodynamically stable, and oxygen saturation 92%. Rectal tube in place.
--- NOTE | 2019-09-11 20:00 | NUR ---
RECEIVED PT OPENS HIS EYES TO VERBAL STIMULI, FOLLOWS TO SIMPLE COMMAND. ON O2 @ 100% NRM & 3L NC W/ O2 SAT OF 92%. NGT ON L NARE, CHECKED PLACEMENT & CHECKED RESIDUAL NONE NOTED, ON TUBE FDG OF JEVITY 1.2 @ 40CC/HR. IVF 1/2NS W/ 20 MEQ KCL @75 CC/HR ON DERICK. FLEXISEAL INTACT W/ LIQUIDISH STOOL. REPOSITIONED W/ HOB ELEVATED.
[2019-09-12] VITALS (24 sets, daily range): BP systolic 98–161; BP diastolic 40–123
--- NOTE | 2019-09-12 | NUR ---
FREQUENT SUCTIONING DONE, W/ THICK BROWNISH MUCOUS.
[2019-09-12] MEDS: LORAZEPAM 2 MG/1 ML VIAL IV PRN ×5 (01:42→20:12)
[2019-09-12] MEDS: POTASSIUM CHLORIDE 20 MEQ in IV 1/2NS 1000 ML 1,000 ML IV PRN ×2 (03:54→18:49)
--- NOTE | 2019-09-12 04:43 | NUR ---
AM CARE DONE. DESATURATED EASILY DURING INCREASE OF ACTIVITY.
[2019-09-12] MEDS: BLOOD SUGAR DIAGNOSTIC 1 EACH STRIP VI SCH ×4 (05:16→23:41)
[2019-09-12] MEDS: INSULIN REGULAR, HUMAN 300 UNIT/3 ML VIAL SQ PRN ×4 (05:18→23:43)
[2019-09-12] MEDS: PIPERACILLIN SODIUM/TAZOBACTAM 3.375 G in IV DEXTROSE 5% 50 ML IV SCH ×3 (05:20→22:25)
[2019-09-12 05:55] LABS: PHOSPHOROUS 1.9 mg/dL (2.5-4.9)
--- NOTE | 2019-09-12 07:30 | NUR ---
Received patient from cage shift manager nurse, patient in bed, no distress noted at this time, bed in low position, side rails upx 2. Patient on 02 @ 100% NRB and 3L nasal cannula. Checked placement of NG tube in left nares, tube feeding stopped, iv fluids infusing @ 75cc/hr 1/2 ns w/20 meq kcl. Flexiseal flushed and patient cleaned up as flexiseal was leaking. Repositioned patient and elevated head.
[2019-09-12] MEDS: QUETIAPINE FUMARATE 25 MG TABLET PO SCH ×3 (08:15→17:47)
[2019-09-12] MEDS: ASPIRIN 81 MG TAB.CHEW NG SCH (08:15)
[2019-09-12] MEDS: DIVALPROEX SPRINKLE 125 MG CAP.SPRINK PO SCH ×2 (08:15→20:43)
[2019-09-12] MEDS: methylPREDNISolone SOD SUCC 40 MG/ML VIAL IV SCH ×2 (08:17→20:43)
[2019-09-12] MEDS: METHIMAZOLE 5 MG TABLET NG SCH (08:17)
[2019-09-12] MEDS: MORPHINE SULFATE 2 MG/1 ML DISP.SYRIN IV PRN ×2 (08:19→15:20)
[2019-09-12 08:37] LABS: BASOPHILS % (AUTO) 0.1 % (0.0-2.0); HEMATOCRIT 35.2 % (36.7-47.1); LYMPHOCYTES # (AUTO) 0.2 K/uL (20.0-40.0); LYMPHOCYTES % (AUTO) 1.6 % (20.5-51.5); MEAN CORPUSCULAR HEMOGLOBIN 31.1 uug (23.8-33.4); MEAN CORPUSCULAR HGB CONC 34 g/dL (32.5-36.3); MEAN CORPUSCULAR VOLUME 91.5 fL (73.0-96.2); MONOCYTES # (AUTO) 0.7 K/uL (2.0-10.0); MONOCYTES % (AUTO) 5.2 % (0.0-11.0); NEUTROPHILS # (AUTO) 11.9 K/uL (1.8-8.9); NEUTROPHILS % (AUTO) 93.1 % (38.5-71.5); PLATELET COUNT (AUTO) 164 K/uL (152-348); RED BLOOD CELL COUNT(AUTO) 3.85 MIL/uL (4.06-5.63); WHITE BLOOD COUNT (AUTO) 12.8 K/uL (3.6-10.2)
[2019-09-12] MEDS: HEPARIN SODIUM,PORCINE 5,000 UNITS/ML VIAL SQ SCH ×2 (08:41→20:45)
[2019-09-12 09:01] LABS: BILIRUBIN,DIRECT 0.1 mg/dL (0.0-0.2); BILIRUBIN,TOTAL 0.5 mg/dL (0.2-1.0); POTASSIUM 4.5 mmol/L (3.5-5.1); TOTAL PROTEIN, SERUM 4.4 g/dL (6.4-8.2)
[2019-09-12] MEDS: JEVITY 1.2 1000 ML LIQUID NG PRN (11:00)
--- NOTE | 2019-09-12 12:00 | NUR ---
Patient cleaned and shaved, repositioned, and suctioned nasopharyngeal left nares.
--- NOTE | 2019-09-12 15:00 | NUR ---
Patient started to desaturate down to 80's, suction performed with little return but patient has become tachypneic and restless.
[2019-09-12] MEDS: INVESTIGATIONAL IV MED 1 EA in IV NORMAL SALINE 230 ML IV SCH (15:15)
[2019-09-12] MEDS ORDERED: NEUTRA PHOS PACKET NG ONE (15:30)
--- NOTE | 2019-09-12 15:30 | NUR ---
Contacted Pk Little DAMPER WORKER to notify of patients declining oxygen saturation and distress. Call being placed to family at this time by DAMPER WORKER.
--- NOTE | 2019-09-12 18:58 | NUR ---
Patient maintained on 15L nonrebreather mask 100%, sinus rhythm on monitor, oxygen saturation 94%. Patient had a period of desaturation when laying on left side, was in distress and short of breath. Patient is hemodynamically stable, continues to need routine administration of ativan and morphine. Wilde draining urine that has sediment. Flexiseal in place. Patient frequently repositioned.
--- NOTE | 2019-09-12 20:00 | NUR ---
RECEIVED PT RESPONDING TO PAINFUL STIMULI. ON O2 OF 100% NRM W/ 6L NC W/ O2 SAT OF 96%.IVF 1/2NS W/ 20 MEQ KCL @ 75CC/HR VIA PICC LINE ON DERICK. MIDLINE INTACT & PATENT ON NIKO. NGT ON L NARE, CHECKED PLACEMENT & CHECKED RESIDUAL NONE NOTED. ON TUBE FDG OF JEVITY 1.2 @ 60CC/HR. SUCTIONED & REPOSITIONED PT W/ HOB ELEVATED.
[2019-09-13] VITALS (13 sets, daily range): BP systolic 0–117; BP diastolic 0–73
--- NOTE | 2019-09-13 | NUR ---
AFEBRILE. PT NEEDED TO BE SUCTIONED FREQ. DESATURATING EASILY.
[2019-09-13] MEDS: LORAZEPAM 2 MG/1 ML VIAL IV PRN (01:21)
--- NOTE | 2019-09-13 05:00 | NUR ---
AM CARE DONE. SUCTIONED .
[2019-09-13] MEDS: PIPERACILLIN SODIUM/TAZOBACTAM 3.375 G in IV DEXTROSE 5% 50 ML IV SCH (05:16)
[2019-09-13] MEDS: BLOOD SUGAR DIAGNOSTIC 1 EACH STRIP VI SCH (05:45)
[2019-09-13] MEDS: INSULIN REGULAR, HUMAN 300 UNIT/3 ML VIAL SQ PRN (05:47)
[2019-09-13 05:48] LABS: BASOPHILS % (AUTO) 0.2 % (0.0-2.0); HEMATOCRIT 45.6 % (36.7-47.1); HEMOGLOBIN 15.3 g/dL (12.5-16.3); LYMPHOCYTES # (AUTO) 0.5 K/uL (20.0-40.0); LYMPHOCYTES % (AUTO) 2.5 % (20.5-51.5); MEAN CORPUSCULAR HEMOGLOBIN 31.4 uug (23.8-33.4); MEAN CORPUSCULAR HGB CONC 34 g/dL (32.5-36.3); MEAN CORPUSCULAR VOLUME 93.6 fL (73.0-96.2); MONOCYTES # (AUTO) 0.8 K/uL (2.0-10.0); MONOCYTES % (AUTO) 4.3 % (0.0-11.0); NEUTROPHILS # (AUTO) 17.9 K/uL (1.8-8.9); PLATELET COUNT (AUTO) 227 K/uL (152-348); RED BLOOD CELL COUNT(AUTO) 4.87 MIL/uL (4.06-5.63); WHITE BLOOD COUNT (AUTO) 19.3 K/uL (3.6-10.2)
--- NOTE | 2019-09-13 06:00 | NUR ---
BP-66/34, STARTED ON LEVOPHED DRIP @ 0.1MCQ/KG/MIN.
[2019-09-13] MEDS ORDERED: NOREPINEPHRINE BITARTRATE 4 MG/4 ML VIAL IV ONE (06:03)
[2019-09-13 06:07] LABS: CREATININE 1.3 mg/dL (0.6-1.3); MAGNESIUM 2.2 mg/dL (1.8-2.4); PHOSPHOROUS 4.9 mg/dL (2.5-4.9); POTASSIUM 5.2 mmol/L (3.5-5.1)
[2019-09-13] MEDS: NOREPINEPHRINE BITARTRATE 8 MG in IV NORMAL SALINE 242 ML IV PRN (06:08)
--- NOTE | 2019-09-13 06:30 | NUR ---
dr carlson called and notified of glucose levels , no ordered received
--- NOTE | 2019-09-13 07:10 | NUR ---
GILSON MARLEYLLO NOTIFIED OF CONDITION ,& . JOSE LUKE WAS WAS HERE.
--- NOTE | 2019-09-13 07:22 | NUR ---
Patient apniec for 5 minutes pupils fixed and dialted. no audible heart tones or breath sounds x1 minute. no corneal reflexes. patient pronounced at this time 0722. physician and engineering design supervisor and family notified.
== END 2019-09-13 07:22 | disposition expired | DRG 871 ==
LOC: ER 16:26 → CCU 20:35
PROVIDERS: ADMIT Nurse Practitioner Acute Care; ATTEND Nurse Practitioner Acute Care
PROC: 02HV33Z Insertion of Infusion Device into Superior Vena Cava, Percutaneous Approach (ICD-10-PCS; principal; 2019-09-09)
PROC: B548ZZA Ultrasonography of Superior Vena Cava, Guidance (ICD-10-PCS; 2019-09-09)
DX: A41.89 Other specified sepsis (principal); U07.1 COVID-19; J12.89 Other viral pneumonia; J96.01 Acute respiratory failure with hypoxia; E43 Unspecified severe protein-calorie malnutrition; G93.41 Metabolic encephalopathy; N17.0 Acute kidney failure with tubular necrosis; I21.A1 Myocardial infarction type 2; R65.21 Severe sepsis with septic shock; J15.9 Unspecified bacterial pneumonia; J69.0 Pneumonitis due to inhalation of food and vomit; D68.69 Other thrombophilia; E87.0 Hyperosmolality and hypernatremia; E87.2 Acidosis; R64 Cachexia; I48.0 Paroxysmal atrial fibrillation; E03.9 Hypothyroidism, unspecified; E83.42 Hypomagnesemia; E83.39 Other disorders of phosphorus metabolism; E86.9 Volume depletion, unspecified; E87.6 Hypokalemia; F03.90 Unspecified dementia, unspecified severity, without behavioral disturbance, psychotic disturbance, mood disturbance, and anxiety; Z66 Do not resuscitate; K74.60 Unspecified cirrhosis of liver; E05.90 Thyrotoxicosis, unspecified without thyrotoxic crisis or storm; E80.6 Other disorders of bilirubin metabolism; N40.0 Benign prostatic hyperplasia without lower urinary tract symptoms; K42.9 Umbilical hernia without obstruction or gangrene; Z68.20 Body mass index [BMI] 20.0-20.9, adult; F29 Unspecified psychosis not due to a substance or known physiological condition; F39 Unspecified mood [affective] disorder; E88.09 Other disorders of plasma-protein metabolism, not elsewhere classified; M62.50 Muscle wasting and atrophy, not elsewhere classified, unspecified site; R73.03 Prediabetes; N18.9 Chronic kidney disease, unspecified; I12.9 Hypertensive chronic kidney disease with stage 1 through stage 4 chronic kidney disease, or unspecified chronic kidney disease; R13.10 Dysphagia, unspecified; R62.7 Adult failure to thrive
CPT/HCPCS: 36415; 36600; 51702; 70030-TC; 70450; 71045; 71250; 83605; 83615; 83735; 84100; 84443; 84481; 85025; 85610; 85730; 86140; 87040; 87070; 87086; 87400; 93005; A4217; A4663; G0378; J0456; J0696; J1200; J1644; J1650; J1815; J2060; J2270; J2543; J2920; J3262; J3370; J3475; J3480; J3490; J7030; J7040; J7050; J7060; U0003-CS